=== PATIENT | female | born 1985 | race Caucasian/White ===

== ENCOUNTER 2019-02-03 16:34 | Emergency (ER) | payer MEDICARE, MEDICAID ==
[~2019-02-03] VITALS: Ht 163.8 cm; Wt 133.8 kg
[~2019-02-03 16:34] MED LIST: ALPR0.25 PO; AMBIEN; ARTANE; CEPH500C PO; DEXT10TA9 PO; FLUV25TA3 PO; IBUP-1773 PO; ONDAN4ODT SL; OXYC1TAB87 PO; QUET150T PO; SEROQUEL; TOPAMAX; TOPI50TA37 PO; TRAZ-190 PO; TRAZODONE; TRIH2TAB2 PO; ZOLP10TA PO; [UNRECOGNIZED DRUG - OTHER]
[2019-02-03 17:13] LABS: BILIRUBIN,URINE NEGATIVE (NEGATIVE); CLARITY,URINE CLEAR; COLOR,URINE YELLOW; GLUCOSE, URINE (UA) NEGATIVE (NEGATIVE); KETONES,URINE NEGATIVE (NEGATIVE); LEUKOCYTE ESTERASE ,URINE NEGATIVE (NEGATIVE); NITRITE,URINE NEGATIVE (NEGATIVE); PH,URINE 7 (5-9); PROTEIN,URINE NEGATIVE (NEGATIVE); UROBILINOGEN,URINE NORMAL (NORMAL)
[2019-02-03 17:22] LABS: BACTERIA,URINE TRACE /HPF; WBC,URINE RARE /HPF
[2019-02-03 17:22] LABS: BASOPHILS % (AUTO) 0 % (0-10); EOSINOPHILS # (AUTO) 0.3 10^3/uL (0.0-0.3); EOSINOPHILS % (AUTO) 3 % (0-10); HEMATOCRIT 43 % (35-52); HEMOGLOBIN 14.4 G/DL (11.5-16.0); LYMPHOCYTES # (AUTO) 2.8 X 10^3 (1.0-4.0); LYMPHOCYTES % (AUTO) 25 % (12-44); MEAN CORPUSCULAR HEMOGLOBIN 31 PG (25-34); MEAN CORPUSCULAR HGB CONC 34 G/DL (32-36); MEAN CORPUSCULAR VOLUME 92 FL (80-99); MEAN PLATELET VOLUME 8.6 FL (7.4-10.4); MONOCYTES # (AUTO) 0.6 X 10^3 (0.0-1.0); MONOCYTES % (AUTO) 5 % (0-12); NEUTROPHILS # (AUTO) 7.3 X 10^3 (1.8-7.8); NEUTROPHILS % (AUTO) 67 % (42-75); PLATELET COUNT 308 10^3/uL (130-400); RED CELL DISTRIBUTION WIDTH 12.5 % (10.0-14.5)
--- NOTE | 2019-02-03 17:34 | ED General ---
General Chief Complaint: Psych/Social Disorder Stated Complaint: ANXIETY Nursing Triage Note: Pt to ED via EMS with main complaint of anxiety. Pt reports feeling better upon arrival to ED. Pt also c/o difficulty burping and has had L breast pain for a year. Pt describes pain as feeling as if a needle is going through breast. Pt also reports discharge from nipple. Pt denies suicidal or homicidal thoughts at this time. Nursing Sepsis Screen: No Definite Risk History of Present Illness Date Seen by Provider: Feb 03, 2019 Time Seen by Provider: 17:10 Initial Comments 33 year old female presents via EMS for anxiety attack. The EMS reports that they were called because she was having significant anxiety attack, left-sided chest pain, and GERD. Upon arrival here, she is calm and cooperative, feels the anxiety has improved. She reports significant increase in her stress over the last 3-4 days has precipitated this. She is scheduled to begin a weight loss clinic prior to bariatric surgery next week, in [place]. She also reports tenderness in her left breast with fluid being expressed over the last year. She has not been for many years, her youngest child is 12. No history of mammogram or follow up for this concern. Timing/Duration: 2-3 Days, Getting Worse Severity: Mild Associated Systoms: Denies Symptoms Allergies and Home Medications Allergies Coded Allergies: No Known Drug Allergies (Unverified , 06/28/13) Home Medications Alprazolam 0.25 Mg Tablet, 0.25 MG PO QID PRN for ANXIETY, (Reported) Dextroamphetamine/Amphetamine 10 Mg Tablet, 30 MG PO DAILY, (Reported) take 3 (10mg) tabs Fluvoxamine Maleate 25 Mg Tablet, 25 MG PO HS, (Reported) Ibuprofen 600 Mg Tablet, 600 MG PO Q6H Prescribed by: ROCÍO WILLIS on 04/27/16 1302 Oxycodone HCl/Acetaminophen 1 Each Tablet, 1 EACH PO Q6H PRN for PAIN MAY TAKE ONE TABLET BY MOUTH EVERY 6 HOURS NEEDED FOR PAIN. DO NOT EXCEED 3000 MG TYLENOL(ACETAMINOPHEN)IN A 24 HR PERIOD. LAST DOSE GIVEN AT 3:11 PM 04/27/16. Prescribed by: PATTI DA SILVA on 04/27/16 1525 Quetiapine Fumarate 150 Mg Tab.er.24h, 150 MG PO HS, (Reported) Topiramate 50 Mg Tablet, 50 MG PO QID, (Reported) Trazodone HCl 100 Mg Tablet, 200 MG PO HS, (Reported) take 2 (100mg) tabs Trihexyphenidyl HCl 2 Mg Tablet, 2 MG PO HS, (Reported) Zolpidem Tartrate 10 Mg Tablet, 10 MG PO HS PRN for SLEEP, (Reported) Patient Home Medication List Home Medication List Reviewed: Yes Review of Systems Review of Systems Constitutional: no symptoms reported, see HPI Psychiatric/Neurological: See HPI, Anxiety All Other Systems Reviewed Negative Unless Noted: Yes Past Lvqhgip-Scezfi-Lrbqho Hx Past Med/Social Hx: Reviewed Nursing Past Med/Soc Hx Patient Social History Alcohol Use: Denies Use Recreational Drug Use: Yes Drug of Choice: marijuana Smoking Status: Current Everyday Smoker Type Used: Cigarettes Recent Foreign Travel: No Contact w/Someone Who Travel: No Recent Infectious Disease Expo: No Recent Hopitalizations: No Physical Abuse: No Sexual Abuse: No Immunizations Up To Date Tetanus Booster (TDap): Less than 5yrs Seasonal Allergies Seasonal Allergies: No Past Medical History Surgeries: Yes (UD, LEEP) Appendectomy, Section Respiratory: No Cardiac: No (reports it feels like it skips a beat at times) Neurological: Yes Concussion, Headaches /Migraines Reproductive Disorders: Yes Gastrointestinal: No Musculoskeletal: No Endocrine: No Cancer: No Cervical Psychosocial: Yes ADD/ADHD, Anxiety, Bipolar, Schizophrenia Integumentary: No Blood Disorders: No Family Medical History Heart Disease, Cancer, Diabetes, Psychiatric Problems Physical Exam Vital Signs Vital Signs - First Documented 02/03/19 17:07 Temp 97.8 Pulse 88 Resp 18 B/P (MAP) 144/104 (117) Pulse Ox 98 O2 Delivery Room Air Capillary Refill : Less Than 3 Seconds Height, Weight, BMI Height: 5'4.50" Weight: 295lbs. 0.0oz. 133.333821kd; 41.6 BMI Method:Stated General Appearance: No Apparent Distress, WD/WN Eyes: Bilateral Eye Normal Inspection, Bilateral Eye PERRL, Bilateral Eye EOMI HEENT: PERRL/EOMI, TMs Normal, Normal ENT Inspection, Pharynx Normal Neck: Full Range of Motion, Normal Inspection, Non Tender, Supple Respiratory: Chest Non Tender, Lungs Clear, Normal Breath Sounds Cardiovascular: Regular Rate, Rhythm, No Murmur, Normal Peripheral Pulses Gastrointestinal: Normal Bowel Sounds, Non Tender, Soft Extremity: Normal Capillary Refill, Normal Inspection, Normal Range of Motion Neurologic/Psychiatric: Alert, Oriented x3, No Motor/Sensory Deficits, Normal Mood/Affect (patient reports much calmer feeling and no anxiety after EMS ride here. ) Skin: Normal Color, Warm/Dry Comments Left breast examined, no discharge expelled. No masses palpated. Progress/Results/Core Measures Suspected Sepsis Recent Fever Within 48 Hours: No Infection Criteria Present: None New/Unexplained Altered Menta: No Sepsis Screen: No Definite Risk SIRS Temperature:97.8 Pulse: 88 Respiratory Rate: 18 Laboratory Tests 02/03/19 17:13: White Blood Count 11.0 Blood Pressure 144 /104 Mean: 117 Laboratory Tests 02/03/19 17:13: Creatinine 0.77, Platelet Count 308, Total Bilirubin 0.3 Results/Orders Lab Results Laboratory Tests Test 02/03/19 17:05 02/03/19 17:13 Range/Units Urine Color YELLOW Urine Clarity CLEAR Urine pH 7 5-9 Urine Specific [place] 1.010 L 1.016-1.022 Urine Protein NEGATIVE NEGATIVE Urine Glucose (UA) NEGATIVE NEGATIVE Urine Ketones NEGATIVE NEGATIVE Urine Nitrite NEGATIVE NEGATIVE Urine Bilirubin NEGATIVE NEGATIVE Urine Urobilinogen NORMAL NORMAL MG/DL Urine Leukocyte Esterase NEGATIVE NEGATIVE Urine RBC (Auto) NEGATIVE NEGATIVE Urine RBC NONE /HPF Urine WBC RARE /HPF Urine Squamous Epithelial Cells 2-5 /HPF Urine Crystals NONE /LPF Urine Bacteria TRACE /HPF Urine Casts NONE /LPF Urine Mucus NEGATIVE /LPF Urine Culture Indicated NO White Blood Count 11.0 4.3-11.0 10^3/uL Red Blood Count 4.65 4.35-5.85 10^6/uL Hemoglobin 14.4 11.5-16.0 G/DL Hematocrit 43 35-52 % Mean Corpuscular Volume 92 80-99 FL Mean Corpuscular Hemoglobin 31 25-34 PG Mean Corpuscular Hemoglobin Concent 34 32-36 G/DL Red Cell Distribution Width 12.5 10.0-14.5 % Platelet Count 308 130-400 10^3/uL Mean Platelet Volume 8.6 7.4-10.4 FL Neutrophils (%) (Auto) 67 42-75 % Lymphocytes (%) (Auto) 25 12-44 % Monocytes (%) (Auto) 5 0-12 % Eosinophils (%) (Auto) 3 0-10 % Basophils (%) (Auto) 0 0-10 % Neutrophils # (Auto) 7.3 1.8-7.8 X 10^3 Lymphocytes # (Auto) 2.8 1.0-4.0 X 10^3 Monocytes # (Auto) 0.6 0.0-1.0 X 10^3 Eosinophils # (Auto) 0.3 0.0-0.3 10^3/uL Basophils # (Auto) 0.0 0.0-0.1 10^3/uL Sodium Level 139 135-145 MMOL/L Potassium Level 3.8 3.6-5.0 MMOL/L Chloride Level 106 98-107 MMOL/L Carbon Dioxide Level 21 21-32 MMOL/L Anion Gap 12 5-14 MMOL/L Blood Urea Nitrogen 7 7-18 MG/DL Creatinine 0.77 0.60-1.30 MG/DL Estimat Glomerular Filtration Rate > 60 BUN/Creatinine Ratio 9 Glucose Level 92 70-105 MG/DL Calcium Level 9.7 8.5-10.1 MG/DL Corrected Calcium 9.6 8.5-10.1 MG/DL Total Bilirubin 0.3 0.1-1.0 MG/DL Aspartate Amino Transf (AST/SGOT) 27 5-34 U/L Alanine Aminotransferase (ALT/SGPT) 38 0-55 U/L Alkaline Phosphatase 112 40-136 U/L Troponin I < 0.028 <0.028 NG/ML Total Protein 7.4 6.4-8.2 GM/DL Albumin 4.1 3.2-4.5 GM/DL My Orders Orders - SELMA SANTANA Chest Pa/Lat (2 View) (02/03/19 16:49) Cbc With Automated Diff (02/03/19 16:49) Comprehensive Metabolic Panel (02/03/19 16:49) Ua Culture If Indicated (02/03/19 16:49) Troponin I (02/03/19 16:49) Ekg Tracing (02/03/19 16:49) Vital Signs/I&O 02/03/19 02/03/19 17:07 18:16 Temp 97.8 97.8 Pulse 88 82 Resp 18 18 B/P (MAP) 144/104 (117) 126/90 (102) Pulse Ox 98 99 O2 Delivery Room Air Room Air Capillary Refill : Less Than 3 Seconds Blood Pressure Mean: 117 Progress Note : Time: 17:10 Progress Note Patient seen and evaluated, even though she reports much improvement after the EMS. Will follow up with labs, EKG and chest x-ray. 1800 patient continues to be asymptomatic. Labs, EKG and CXR WNL. Requesting discharge to home. Discharge instructions and return precautions reviewed. All questions answered ECG Initial ECG Impression Date: Feb 03, 2019 Initial ECG Impression Time: 16:58 Initial ECG Rate: 74 Initial ECG Rhythm: Normal Sinus Initial ECG Intervals DC 156, QRSD 86, QT 384, QTc 426. [place] P 42, QRS 41, T 37 Initial ECG Impression: Normal Initial ECG Comparisson: Unchanged Diagnostic Imaging Diagonstic Imaging: Xray Plain Films/CT/US/NM/MRI: chest Comments NAME: ANDREI GORDON MED REC#: [id number] PHYSICIAN: SELMA SANTANA CC: JEB HORNER; SELMA SANTANA Page 1 of 1 RADIOLOGY REPORT [facility] [place] CC: JEB HORNER; SELMA SANTANA Page 1 of 1 RADIOLOGY REPORT NAME: ANDREI GORDON MED REC#: [id number] PT STATUS: REG ER : 1985 PHYSICIAN: SELMA SANTANA ADMIT DATE: 02/03/19/ER Signed Date of Exam: 02/03/19 CHEST PA/LAT (2 VIEW) INDICATION: Anterior chest tightness. FINDINGS: No alveolar consolidation. The heart borders and diaphragms are well visualized. There is some borderline thickening of the central airways and mild perihilar interstitial prominence and ground-glass density, which can be seen in bronchitis or other reactive airway disease. The lung volumes are normal, and there is no failure, effusion, or pneumothorax. IMPRESSION: Borderline prominence of the perihilar interstitial lung markings, but no mary kay failure, pneumonia, or acute pleural pathology. Dictated by: Dictated on workstation # [id number] Dict: 02/03/19 1758 Trans: 02/03/19 1806 Interpreted by: JEB HORNER Electronically signed by: JEB HORNER 02/03/19 1806 Reviewed: Reviewed by Me Departure Impression Primary Impression: Anxiety Disposition: 01 HOME, SELF-CARE Condition: Improved Departure-Patient Inst. Decision time for Depature: 18:05 Referrals: [facility][1]/K (PCP/Family) Primary Care Physician Patient Instructions: Anxiety, Adult (DC) Add. Discharge Instructions: Continue to take your home medications as prescribed. Follow-up with your primary care provider if symptoms are not improving or worsen. Return to emergency department for new, urgent health care. All discharge instructions reviewed with patient and/or family. Voiced understanding. SELMA SANTANA Feb 03, 2019 17:34
[2019-02-03 17:45] LABS: ALANINE AMINOTRANSFERASE 38 U/L (0-55); ALBUMIN 4.1 GM/DL (3.2-4.5); ALKALINE PHOSPHATASE 112 U/L (40-136); BILIRUBIN,TOTAL 0.3 MG/DL (0.1-1.0); BUN/CREATININE RATIO 9; CALCIUM 9.7 MG/DL (8.5-10.1); CARBON DIOXIDE 21 MMOL/L (21-32); CHLORIDE 106 MMOL/L (98-107); CREATININE SERUM 0.77 MG/DL (0.60-1.30); GFR ESTIMATED > 60; GLUCOSE 92 MG/DL (70-105); POTASSIUM 3.8 MMOL/L (3.6-5.0); SODIUM 139 MMOL/L (135-145); TOTAL PROTEIN 7.4 GM/DL (6.4-8.2)
--- NOTE | 2019-02-03 18:04 | Diagnostic Imaging Report ---
INDICATION: Anterior chest tightness. FINDINGS: No alveolar consolidation. The heart borders and diaphragms are well visualized. There is some borderline thickening of the central airways and mild perihilar interstitial prominence and ground-glass density, which can be seen in bronchitis or other reactive airway disease. The lung volumes are normal, and there is no failure, effusion, or pneumothorax. IMPRESSION: Borderline prominence of the perihilar interstitial lung markings, but no mary kay failure, pneumonia, or acute pleural pathology. Dictated by: Dictated on workstation # [id number]
[2019-02-03 18:16] VITALS: BP 126/90
== END 2019-02-03 18:18 | disposition home or self-care (01) ==
LOC: EDUNIT# 16:34 → ER 16:36
DX: F41.9 Anxiety disorder, unspecified (principal); K21.9 Gastro-esophageal reflux disease without esophagitis; G43.909 Migraine, unspecified, not intractable, without status migrainosus; F31.9 Bipolar disorder, unspecified; F20.9 Schizophrenia, unspecified; F90.9 Attention-deficit hyperactivity disorder, unspecified type; F12.10 Cannabis abuse, uncomplicated; F17.210 Nicotine dependence, cigarettes, uncomplicated; Z85.41 Personal history of malignant neoplasm of cervix uteri; Z90.49 Acquired absence of other specified parts of digestive tract; Z82.49 Family history of ischemic heart disease and other diseases of the circulatory system
CPT/HCPCS: 36415; 71046; 80053; 81000; 84484; 85025; 93005

== ENCOUNTER 2021-08-09 14:41 | Emergency (ER) | payer MEDICARE, MEDICAID ==
[~2021-08-09] VITALS: Ht 165.1 cm; Wt 131.5 kg
[~2021-08-09 14:41] MED LIST changes: +FLUV25TA13 PO; -FLUV25TA3 PO; -TRAZ-190 PO; +TRAZ-227 PO; +TRH2T PO; -TRIH2TAB2 PO
--- NOTE | 2021-08-09 14:59 | ED Chest Pain ---
General Chief Complaint: Chest Wall Stated Complaint: CHEST PAIN/VOMITING Source: patient Exam Limitations: no limitations History of Present Illness Date Seen by Provider: Aug 09, 2021 Time Seen by Provider: 14:56 Initial Comments Patient is a 36-year-old female who presents ED with chest pain and vomiting. Chest pain started yesterday evening feels like her "heart is squeezing". Started last night and has been constant. Vomited 5+ episodes this morning when she woke up with bile. Denies of any hematemesis, diarrhea. Epigastric pain pain rating up into her chest. Pressure this morning. Patient took baby aspirin daily. Patient states she is extremely anxious. Increased stress at home secondary to her in rehab ,bills etc. History of appendectomy, C- section. Has not been able to eat or drink secondary to the vomiting. Reports shortness of breath without cough. Mild dizziness. She denies headache, visual changes, sore throat, ear pain, fever, dysuria, concern for . She denies of any recent travels or surgeries, leg swelling. No history of PE or DVT. Allergies and Home Medications Allergies Coded Allergies: No Known Drug Allergies (Unverified , 06/28/13) Patient Home Medication List Home Medication List Reviewed: Yes Alprazolam (Xanax) 0.25 Mg Tablet, 0.25 MG PO QID PRN for ANXIETY, (Reported) Entered as Reported by: GRAHAM WHITNEY on 04/24/16 1310 Dextroamphetamine/Amphetamine (Adderall 10 mg Tablet) 10 Mg Tablet, 30 MG PO DAILY, (Reported) Entered as Reported by: GRAHAM WHITNEY on 04/24/16 1310 Fluvoxamine Maleate (Fluvoxamine Maleate) 25 Mg Tablet, 25 MG PO HS, (Reported) Entered as Reported by: GRAHAM WHITNEY on 04/24/16 1310 Ibuprofen (Ibuprofen) 600 Mg Tablet, 600 MG PO Q6H Prescribed by: ROCÍO WILLIS on 04/27/16 1302 Ondansetron (Ondansetron Odt) 4 Mg Tab.rapdis, 4 MG PO Q4H Prescribed by: SAMSON CUNNINGHAM on 08/09/21 1701 Oxycodone HCl/Acetaminophen (Percocet 5-325 mg Tablet) 1 Each Tablet, 1 EACH PO Q6H PRN for PAIN Prescribed by: PATTI DA SILVA on 04/27/16 1525 Pantoprazole Sodium (Protonix) 40 Mg Tablet.dr, 40 MG PO DAILY Prescribed by: SAMSON CUNNINGHAM on 08/09/21 1701 Quetiapine Fumarate (Seroquel Xr) 150 Mg Tab.er.24h, 150 MG PO HS, (Reported) Entered as Reported by: GRAHAM WHITNEY on 04/24/16 1310 Topiramate (Topamax) 50 Mg Tablet, 50 MG PO QID, (Reported) Entered as Reported by: GRAHAM WHITNEY on 04/24/16 1310 Trazodone HCl (Trazodone HCl) 100 Mg Tablet, 200 MG PO HS, (Reported) Entered as Reported by: RGAHAM WHITNEY on 04/24/16 1310 Trihexyphenidyl HCl (Trihexyphenidyl HCl) 2 Mg Tablet, 2 MG PO HS, (Reported) Entered as Reported by: GRAHAM WHITNEY on 04/24/16 1310 Zolpidem Tartrate (Ambien) 10 Mg Tablet, 10 MG PO HS PRN for SLEEP, (Reported) Entered as Reported by: GRAHAM WHITNEY on 04/24/16 131 Review of Systems Review of Systems Constitutional: No chills; dizziness; No fever, No malaise, No weakness EENTM: No Double Vision, No Ear Pain, No Mouth Pain, No Nose Pain, No Throat Pain Respiratory: Denies Cough; Shortness of Air; Denies SOA With Exertion, Denies SOA at Rest Cardiovascular: Chest Pain; Denies Edema Gastrointestinal: Abdominal Pain; Denies Diarrhea; Nausea, Vomiting Genitourinary: Denies Burning, Denies Discharge, Denies Drainage Musculoskeletal: No back pain, No joint pain, No joint swelling, No muscle pain Skin: No change in color, No change in hair/nails Psychiatric/Neurological: Anxiety; Denies Headache All Other Systems Reviewed Negative Unless Noted: Yes Past Kredmep-Oyiagp-Qafcza Hx Patient Social History Tobacco Use?: No Use of E-Cig and/or Vaping dev: Yes E-Cig or Vaping type used: Nicotine Substance use?: Yes Substance type: Marijuana Alcohol Use?: No Immunizations Up To Date Tetanus Booster (TDap): Less than 5yrs Influenza Vaccine Up-to-Date: No; Not Current First/Initial COVID19 Vaccinat: NONE Second COVID19 Vaccination Bryon: NONE Third COVID19 Vaccination Date: NONE COVID19 Vaccine Canvas Baster Jumpbasting: NONE Seasonal Allergies Seasonal Allergies: No Past Medical History Surgeries: Yes (UD, LEEP) Appendectomy, Section Respiratory: No Cardiac: No (reports it feels like it skips a beat at times) Neurological: Yes Concussion, Headaches /Migraines Reproductive Disorders: Yes Gastrointestinal: No Musculoskeletal: No Endocrine: No Cancer: No Cervical Psychosocial: Yes ADD/ADHD, Anxiety, Bipolar, Schizophrenia Integumentary: No Blood Disorders: No Family Medical History Heart Disease, Cancer, Diabetes, Psychiatric Problems Physical Exam Vital Signs Vital Signs - First Documented 08/09/21 08/09/21 14:42 17:10 Temp 36.2 Pulse 79 Resp 24 B/P (MAP) 147/78 (101) Pulse Ox 99 O2 Delivery Room Air Capillary Refill : Height, Weight, BMI Height: 5'4.50" Weight: 295lbs. 0.0oz. 133.636555td; 41.6 BMI Method:Stated General Appearance: No Apparent Distress, WD/WN HEENT: PERRL/EOMI, TMs Normal, Normal ENT Inspection, Pharynx Normal Neck: Full Range of Motion, Normal Inspection, Non Tender, Supple Respiratory: Chest Non Tender, Lungs Clear, Normal Breath Sounds, No Accessory Muscle Use Cardiovascular: Regular Rate, Rhythm, No Edema, No Gallop, No JVD, No Murmur Gastrointestinal: Normal Bowel Sounds, No Organomegaly, No Pulsatile Mass, Soft, Other (epigastric tenderness) Extremity: Normal Capillary Refill, Normal Inspection, Normal Range of Motion, Non Tender, No Calf Tenderness Neurologic/Psychiatric: Alert, Oriented x3, No Motor/Sensory Deficits, Normal Mood/Affect Skin: Normal Color, Warm/Dry Progress/Results/Core Measures Results/Orders Lab Results Laboratory Tests Test 08/09/21 14:50 Range/Units White Blood Count 11.8 H 4.3-11.0 10^3/uL Red Blood Count 4.76 3.80-5.11 10^6/uL Hemoglobin 14.8 11.5-16.0 g/dL Hematocrit 44 35-52 % Mean Corpuscular Volume 92 80-99 fL Mean Corpuscular Hemoglobin 31 25-34 pg Mean Corpuscular Hemoglobin Concent 34 32-36 g/dL Red Cell Distribution Width 12.2 10.0-14.5 % Platelet Count 313 130-400 10^3/uL Mean Platelet Volume 8.8 L 9.0-12.2 fL Immature Granulocyte % (Auto) 0 % Neutrophils (%) (Auto) 81 H 42-75 % Lymphocytes (%) (Auto) 14 12-44 % Monocytes (%) (Auto) 4 0-12 % Eosinophils (%) (Auto) 1 0-10 % Basophils (%) (Auto) 1 0-10 % Neutrophils # (Auto) 9.5 H 1.8-7.8 10^3/uL Lymphocytes # (Auto) 1.6 1.0-4.0 10^3/uL Monocytes # (Auto) 0.5 0.0-1.0 10^3/uL Eosinophils # (Auto) 0.1 0.0-0.3 10^3/uL Basophils # (Auto) 0.1 0.0-0.1 10^3/uL Immature Granulocyte # (Auto) 0.0 0.0-0.1 10^3/uL Sodium Level 140 135-145 MMOL/L Potassium Level 3.9 3.6-5.0 MMOL/L Chloride Level 105 98-107 MMOL/L Carbon Dioxide Level 21 21-32 MMOL/L Anion Gap 14 5-14 MMOL/L Blood Urea Nitrogen 8 7-18 MG/DL Creatinine 0.70 0.60-1.30 MG/DL Estimat Glomerular Filtration Rate 113 BUN/Creatinine Ratio 11 Glucose Level 106 H 70-105 MG/DL Calcium Level 9.4 8.5-10.1 MG/DL Corrected Calcium 9.2 8.5-10.1 MG/DL Magnesium Level 2.0 1.6-2.4 MG/DL Total Bilirubin 0.4 0.1-1.0 MG/DL Aspartate Amino Transf (AST/SGOT) 24 5-34 U/L Alanine Aminotransferase (ALT/SGPT) 25 0-55 U/L Alkaline Phosphatase 109 40-136 U/L Troponin I < 0.028 <0.028 NG/ML Total Protein 7.8 6.4-8.2 GM/DL Albumin 4.2 3.2-4.5 GM/DL Lipase 25 8-78 U/L Serum Test, Qualitative NEGATIVE NEGATIVE My Orders Orders - ELIZABETH GIBSON PA Cbc With Automated Diff (08/09/21 14:54) Comprehensive Metabolic Panel (08/09/21 14:54) Lipase (08/09/21 14:54) Troponin I [place] (08/09/21 14:54) Chest 1 View, Ap/Pa Only (08/09/21 14:54) Ekg Tracing (08/09/21 14:54) Lorazepam Injection (Ativan Injection) (08/09/21 15:00) Ondansetron Injection (Zofran Injectio (08/09/21 15:00) Hcg,Qualitative Serum (08/09/21 14:55) Magnesium (08/09/21 14:59) Promethazine Injection (Phenergan Injec (08/09/21 15:45) Medications Given in ED Current Medications Medications Dose Ordered Sig/Tamia Route Start Time Stop Time Status Last Admin Dose Admin Lorazepam 1 mg ONCE ONCE IVP 08/09/21 15:00 08/09/21 15:01 DC 08/09/21 15:04 1 MG Ondansetron HCl 4 mg ONCE ONCE IVP 08/09/21 15:00 08/09/21 15:01 DC 08/09/21 15:04 4 MG Promethazine HCl 25 mg ONCE ONCE IVP 08/09/21 15:45 08/09/21 15:46 DC 08/09/21 15:52 25 MG Vital Signs/I&O 08/09/21 08/09/21 14:42 17:10 Temp 36.2 Pulse 79 72 Resp 24 20 B/P (MAP) 147/78 (101) 142/82 Pulse Ox 99 O2 Delivery Room Air Room Air Comment Sinus rhythm, 60 bpm, QRS duration 90 MS, QTc 419 MS. Departure Communication (Admissions) Patient is a 36-year-old female who was brought to ED by EMS for vomiting and chest pain. History of anxiety, GERD. Chest pain started last night. EKG normal sinus rhythm. Cardiac work-up unremarkable. She not tachycardic or hypoxic. Denies control denies of any leg swelling. Low risk for PE. She has epigastric tenderness. Denies any alcohol use or excessive NSAID use. No hematemesis, hematochezia. History of appendectomy. Patient vomited on arrival. Was given Zofran and Phenergan. She did vomit a second time. Reevaluated patient and she does have some epigastric tenderness but no right upper quadrant tenderness suggesting acute cholecystitis. Patient was tolerating some fluids but tend to irritate her stomach resulting in her vomiting. Recommended observation until symptoms improved with continue antiemetics and evaluation of abdominal pain if ultrasound is needed. She had a white blood count 11.8 but had normal liver enzymes, bilirubin and afebrile. If continues pain would need to ordered ultrasound. Patient states she needs return back to home to get to her family. She states she feels better the pain has improved but every time she drinks it irritates her stomach resulting in her vomiting. This makes me believe this is more gastritis related. Patient states she has been passing gas. Refused any further testing at this time and states she will return if symptoms progress or worsen. If worsening pain to return back to ED for further evaluation and imaging. Impression Primary Impression: Vomiting Disposition: 01 HOME, SELF-CARE Condition: Stable Departure-Patient Inst. Decision time for Depature: 17:00 Referrals: [facility] (PCP/Family) Primary Care Physician Patient Instructions: Nausea and Vomiting, Adult (DC) Scripts Pantoprazole Sodium (Protonix) 40 Mg Tablet.dr 40 MG PO DAILY for 20 Days, #20 TAB Prov: ELIZABETH GIBSON 08/09/21 Ondansetron (Ondansetron Odt) 4 Mg Tab.rapdis 4 MG PO Q4H for 2 Days, #8 TAB Prov: ELIZABETH GIBSON 08/09/21 ELIZABETH GIBSON Aug 09, 2021 14:59
[2021-08-09 15:00] LABS: BASOPHILS # (AUTO) 0.1 10^3/uL (0.0-0.1); BASOPHILS % (AUTO) 1 % (0-10); EOSINOPHILS # (AUTO) 0.1 10^3/uL (0.0-0.3); EOSINOPHILS % (AUTO) 1 % (0-10); HEMATOCRIT 44 % (35-52); HEMOGLOBIN 14.8 g/dL (11.5-16.0); LYMPHOCYTES # (AUTO) 1.6 10^3/uL (1.0-4.0); LYMPHOCYTES % (AUTO) 14 % (12-44); MEAN CORPUSCULAR HEMOGLOBIN 31 pg (25-34); MEAN CORPUSCULAR HGB CONC 34 g/dL (32-36); MEAN CORPUSCULAR VOLUME 92 fL (80-99); MEAN PLATELET VOLUME 8.8 fL (9.0-12.2); MONOCYTES # (AUTO) 0.5 10^3/uL (0.0-1.0); MONOCYTES % (AUTO) 4 % (0-12); NEUTROPHILS # (AUTO) 9.5 10^3/uL (1.8-7.8); NEUTROPHILS % (AUTO) 81 % (42-75); PLATELET COUNT 313 10^3/uL (130-400); WHITE BLOOD COUNT 11.8 10^3/uL (4.3-11.0)
[2021-08-09] MEDS ORDERED: LORazepam INJ 2 MG/ML (ATIVAN) VIAL IVP ONE (15:00)
[2021-08-09] MEDS ORDERED: ONDANSETRON 4 MG/2 ML (SDV) Z0FRAN IVP ONE (15:00)
[2021-08-09 15:16] LABS: ALANINE AMINOTRANSFERASE 25 U/L (0-55); ALBUMIN 4.2 GM/DL (3.2-4.5); ALKALINE PHOSPHATASE 109 U/L (40-136); BILIRUBIN,TOTAL 0.4 MG/DL (0.1-1.0); BUN/CREATININE RATIO 11; CALCIUM 9.4 MG/DL (8.5-10.1); CARBON DIOXIDE 21 MMOL/L (21-32); CHLORIDE 105 MMOL/L (98-107); GFR ESTIMATED 113; GLUCOSE 106 MG/DL (70-105); LIPASE 25 U/L (8-78); POTASSIUM 3.9 MMOL/L (3.6-5.0); SODIUM 140 MMOL/L (135-145); TOTAL PROTEIN 7.8 GM/DL (6.4-8.2)
--- NOTE | 2021-08-09 15:23 | Diagnostic Imaging Report ---
INDICATION: Chest pain. COMPARISON: 02/03/2019. FINDINGS: The lungs appear clear without focal infiltrate or consolidation. There are no findings of an effusion. There is no evidence of a pneumothorax. Heart size and mediastinal contours appear appropriate. Pulmonary vascularity appears within normal limits. There is no acute or suspicious osseous abnormality demonstrated. IMPRESSION: No radiographic evidence of an acute cardiopulmonary process. Dictated by: Dictated on workstation # [id number]
[2021-08-09] MEDS ORDERED: PROMETHAZINE INJ 25 MG/ML (PHENERGAN) AMP IVP ONE (15:45)
[2021-08-09] MEDS ORDERED: ONDA4TAB11 PO (17:01)
[2021-08-09] MEDS ORDERED: PANT40TA2 PO (17:01)
[2021-08-09 17:10] VITALS: BP 142/82
== END 2021-08-09 17:10 | disposition home or self-care (01) ==
LOC: EDUNIT# 14:41 → ER 14:42
DX: R11.2 Nausea with vomiting, unspecified (principal); F41.9 Anxiety disorder, unspecified; F31.9 Bipolar disorder, unspecified; F20.9 Schizophrenia, unspecified; F90.9 Attention-deficit hyperactivity disorder, unspecified type; K21.9 Gastro-esophageal reflux disease without esophagitis; G43.909 Migraine, unspecified, not intractable, without status migrainosus; F17.290 Nicotine dependence, other tobacco product, uncomplicated; Z90.49 Acquired absence of other specified parts of digestive tract; Z79.82 Long term (current) use of aspirin; Z79.899 Other long term (current) drug therapy; Z32.02 Encounter for pregnancy test, result negative
CPT/HCPCS: 36415; 71045; 80053; 83690; 83735; 84484; 84703; 85025; 93005